=== PATIENT | male | born 2000 | race Caucasian/White ===

== ENCOUNTER 2021-06-28 23:25 | Emergency (ER) | payer BC ==
[2021-06-28 23:40] VITALS: BP 148/55; PULSE 88; TEMP 98.9; BMI 26.9
[2021-06-29 01:09] LABS: BASO % 0.4 % (0-2.0); EOS % 0.6 % (0-4.5); HEMATOCRIT 44.5 % (35.4-49); HEMOGLOBIN 15.3 GM/dL (11.7-16.9); LYMPH % 15.1 % (8-40); MCH 30.9 pg (25.7-33.7); MCHC 34.4 g/dl (32.0-35.9); MEAN CELL VOLUME 89.9 fl (80-96); MEAN PLT VOLUME 8.6 fl (7.5-11.1); MONO % 5.5 % (3.8-10.2); NEUT % 78.4 % (42.8-82.8); PLATELET COUNT 258 10^3/uL (134-434); RBC 4.95 M/mm3 (4.00-5.60); WHITE BLOOD COUNT 18.6 K/mm3 (4.0-10.0)
[2021-06-29] MEDS ORDERED: AZITHROMYCIN 250 MG TABLET PO ONE (01:15)
[2021-06-29 01:16] LABS: CALCIUM 9.2 mg/dL (8.5-10.1)
[2021-06-29 01:17] LABS: ALBUMIN 4.2 g/dl (3.4-5.0); BLOOD UREA NITROGEN 16.9 mg/dL (7-18)
[2021-06-29] MEDS ORDERED: AZITHROMYCIN 250 MG TABLET ONE (01:17)
[2021-06-29 01:20] LABS: CREATININE 1.3 mg/dL (0.55-1.3)
[2021-06-29 01:22] LABS: BILIRUBIN,TOTAL 1.4 mg/dL (0.2-1); TOT PROT 7.3 g/dl (6.4-8.2)
== END 2021-06-29 01:25 | disposition home or self-care (01) ==
LOC: FER 23:25
DX: S27.321A Contusion of lung, unilateral, initial encounter (principal); W21.221A Struck by field hockey puck, initial encounter
CPT/HCPCS: 36415; 71260-TC; 80053; 85025; 99285-25; Q9967

== ENCOUNTER 2021-11-14 13:12 | Emergency (ER) | payer BC ==
[2021-11-14 13:23] VITALS: BP 128/50; PULSE 52; RESP 16; TEMP 98.2; BMI 26.3
[2021-11-14 14:58] LABS: HEMATOCRIT 48.1 % (35.4-49); HEMOGLOBIN 17.3 G/dL (11.7-16.9); MCH 32.9 pg (25.7-33.7); MEAN CELL VOLUME 91.5 fl (80-96); PLATELET COUNT 175.3 10^3/uL (134-434); RBC 5.26 10^6/uL (4.00-5.60); RDW 13.5 % (11.9-15.9)
[2021-11-14 15:14] LABS: ALBUMIN 4.5 g/dl (3.4-5.0); ALK PHOS 65 U/L (45-117); ANION GAP 10 MMOL/L (8-16); BILIRUBIN,TOTAL 1.9 mg/dl (0.2-1); CALCIUM 10.1 mg/dl (8.5-10); CHLORIDE 96 mmol/L (98-107); CO2 29 mmol/L (21-32); GLUCOSE,RANDOM 88 mg/dl (74-106); SGOT/AST 22 U/L (15-37); SGPT/ALT 23 U/L (13-61); SODIUM 135 mmol/L (136-145); TOT PROT 7.3 g/dl (6.4-8.2)
== END 2021-11-14 16:01 | disposition home or self-care (01) ==
LOC: FER 13:12
DX: R07.9 Chest pain, unspecified (principal)
CPT/HCPCS: 36415; 71045-TC-FY; 80053; 82550; 82553; 84484; 85025; 93005; 93010; 99285-25